=== PATIENT | male | born 1990 | race Caucasian/White ===

== ENCOUNTER 2021-09-26 11:34 | Emergency (ER) | payer OTHER ==
--- OUTSIDE RECORDS SUMMARY | 2021-09-26 11:37 | XMS REPORT | Continuity of Care Document ---
:[address] [facility] t Address [address] [place] [address] Care Team Providers Name Role Phone Pcp, Does Not Have A Primary Care Physician Willa BURRER HAND Attending Clinician WILLA Attending Clinician Unavailable Doctor Unassigned, Name Attending Clinician Unavailable Lab, Fam Pob I Attending Clinician Unavailable Anene BURRER HAND Attending Clinician Priscila BURRER HAND, F Attending Clinician PRISCILA F Attending Clinician Unavailable Payers Payer Name Policy Type Policy Number Effective Date Expiration Date S ource Problems Condition Condition Condition Status Onset Resolution Last Treating Co mments Source Name Details Category Date Date Treatment Clinician Date Appendicit Appendicit Disease Active U nivers is, acute is, acute 02-01 ity of 00:00: [address] Allergies, Adverse Reactions, Alerts Allergy Allergy Status Severity Reaction(s) Onset Inactive Treating Comm ents Source Name Type Date Date Clinician NO KNOWN Drug Active Univers ALLERGIE Class ity of [facility] Social History Social Habit Start Date Stop Date Quantity Comments Source Exposure to Not sure [facility] SARS-CoV-2 (event) Medica l Branch Tobacco use and 2016-02-02 2016-02-02 Never used [facility] exposure 00:00:00 00:00:00 Medical Branch Sex Ass[birth year] [facility] 00:00:00 00:00:00 Medical Branch Smoking Status Start Date Stop Date Source Never smoker [facility] Medications Ordered Filled Start Stop Current Ordering Indication Dosage Frequency Signature Comments Components Source Medication Medication Date Date Medication? Clinician (SIG) Name Name indio Yes [id number] 5mL Take 5 mL Univers mine-pseudo 2-22 by mouth 4 it y of ephed[place]-D 00:00[place] (BROMFED 00 times Medical DM) 2-30-10 daily as Bran ch mg/5 mL needed for syrup Congestion /Allergies or Cough. fluticasone Yes [id number] 2{spray Use 2 Univers propionate 2-22 } Sprays in ity of 50 00:00: each [place] mcg/actuati 00 nostril Medic al on nasal daily. Branch spray fexofenadin Yes [id number] 1{tbl} Take 1 Univers e-pseudoeph 2-22 tablet by ity of edrine 00:00: mouth 2 [place] (POP-D) 00 (two) Medical 60-120 mg times Branch per tablet daily. acetaminoph No 650mg 650 mg, U nivers en -09-06 Oral, ity of (TYLENOL) 01:45: 00:45 ONCE, 1 [place] tablet 650 00 :00 dose, Fri Medi neema mg 09/06/19 at Branch 2044, ARIANA No known No Univers medications 8-09 ity of 22:19: [place] 24 [facility] No known No [facility] No known No [facility] No known No [facility] No known No Univers medications [facility] Vital Signs Vital Name Observation Time Observation Value Comments Source Body temperature 2019-09-07 01:45:[address] [facility] [place] [place] [facility] Systolic blood 2019-09-07 00:39:00 152 mm[Hg] Univer sity [facility] [place] Diastolic blood 2019-09-07 00:39:00 78 mm[Hg[facility] Heart rate 2019-09-07 00:39:00 82 /min Universi ty [facility] Respiratory rate 2019-09-07 00:39:00 12 /min [facility] Body height 2019-09-07 00:39:00 177.8 cm [facility] Body weight 2019-09-07 00:39:00 77.111 kg [facility] BMI 2019-09-07 00:39:00 24.39 kg/m2 [facility] Oxygen saturation in 2019-09-07 00:39:00 100 /min [facility] blood by [facility] Pulse oximetry Branch Procedures Procedure Date / Time Performed Performing Clinician Sour e CONSENT/REFUSAL FOR 2021-08-17 21:58:17 Doctor Unassigned, No [facility] Name Medical [place] TREATMENT ASSIGNMENT OF BENEFITS 2021-08-17 21:58:04 Doctor Unassigned, No [facility] ADC,CLC OR LCC ONLY - 2019-09-07 01:03:00 [facility] DIRECT Medical [place] ANTIGEN CONSENT/REFUSAL FOR 2019-09-07 00:29:21 Doctor Unassigned, No [facility] AND Name Medical Branch TREATMENT NOTICE OF PRIVACY 2019-09-07 00:27:37 Doctor Unassigned, No [facility] PRACTICES [facility] Medical [place] Encounters Start End Encounter Admission Attending Care Care Encounter Source Date/Time Date/Time Type Type Clinicians Facility Department ID 2021-09-15 2021-09-15 Refill Willa [facility] [id number] Univers 00:00:00 00:00:00 Josy HEALTH [id number] i ty of [place] [id number] [place] CHERRY?BLEA [phone] Wy dical [place] [id number] Branch MEDICAL OFFICE BUILDING 2021-08-17 2021-08-17 Outpatient R WILLA [facility] [id number] Univers 16:00:00 16:27:30 JOSY chris f [facility] [place] 2021-08-17 2021-08-17 Orders Doctor OLIVARES [id number] Univers 00:00:00 00:00:00 Only Unassigned, MANDO [id number] ity of [place] [facility] [id number] [place] [phone] [facility] 009 [place] 2020-07-07 2020-07-07 Laboratory Lab, [facility] Pob I [facility] [id number]. [id number] Univers 09:28:35 09:48:35 Only Anehumza, Deb Health [id number] ity of [place] [id number] [place] Professio [phone] [address] Office Building One 2020-04-28 2020-04-28 Laboratory Lab, [facility] Fam Pob I [facility] [id number]. [id number] Univers 15:15:23 15:35:23 Only Anene, Deb Health [id number] ity of [place] [id number] [place] Professio [phone] [address] Office [facility] 2020-04-28 2020-04-28 Letter Doctor ELISE [id number] Univers 00:00:00 00:00:00 (Out) Unassigned, MANDO [id number] ity of [place] [facility] [id number] [place] [phone] [facility] 044 [place] 2019-09-06 2019-09-06 Emergency [facility] [id number] Univers 19:41:57 21:18:00 Laina Arnold [place] [id number] ity of [place] [id number] [place] [phone] [facility] 084 [place] 2019-09-06 2019-09-06 Emergency X [facility] ERT [id number] Univers 19:41:57 19:41:57 LAINA marie [facility] Results Test Description Test Time Test Comments Results Result Comments Source ADC,CLC OR LCC ONLY - INFLUENZA A & B DIRECT ANTIGEN 2019-08 01:46:00 Test Item Value Reference Range Interpretation Comme nts Influenza A (test code = 21676-8) Negative Negative Influenza B (test code = 98535-7) Negative Negative Lab Interpretation (test code = 76480-6) [facility]
[2021-09-26] MEDS ORDERED: KETOROLAC 30 MG/ML INJ ONE (12:01)
[2021-09-26 12:07] LABS: Urine Blood Negative (Negative); Urine Glucose Negative (Negative); Urine Protein Negative (Negative); Urine Specific Gravity 1.025 (1.005-1.030)
--- NOTE | 2021-09-26 12:15 | ER ---
Nurse's Notes [facility] Name: David Ziegler Age: 31 yrs Sex: Male : 1990 Arrival Date: 09/26/2021 Time: 11:36 Bed 14 Private MD: Diagnosis: Low back pain Presentation: 09/26 11:40 Chief complaint: Patient states: Low back pain sine this morning, denies trauma, denies jl7 urinary symptoms. Coronavirus screen: At this time, the client does not indicate any symptoms associated with coronavirus-19. Ebola Screen: No symptoms or risks identified at this time. Initial Sepsis Screen: Does the patient meet any 2 criteria? No. Patient's initial sepsis screen is negative. Does the patient have a suspected source of infection? No. Patient's initial sepsis screen is negative. Risk Assessment: Do you want to hurt yourself or someone else? Patient reports no desire to harm self or others. Onset of symptoms was September 26, 2021. 11:40 Method Of Arrival: [facility] 11:40 Acuity: SABRINA 4 jl7 Triage Assessment: 11:41 General: Appears in no apparent distress. uncomfortable, Behavior is calm, cooperative, jl7 appropriate for age. Pain: Complains of pain in low back area Pain does not radiate. Pain currently is 8 out of 10 on a pain scale. Neuro: Level of Consciousness is awake, alert, obeys commands, Oriented to person, place, time, situation. Cardiovascular: Patient's skin is warm and dry. Respiratory: Airway is patent Respiratory effort is even, unlabored, Respiratory pattern is regular, symmetrical. : Denies burning with urination, pain. Derm: Skin is pink, warm \T\ dry. Historical: - Allergies: 11:41 No Known Allergies; jl7 - Home Meds: 11:41 None [Active]; jl7 - PMHx: 11:41 None; jl7 - PSHx: 11:41 None; jl7 - Immunization history:: Client reports having NOT received the Covid vaccine. - Social history:: Smoking status: Patient denies any tobacco usage or history of. Screenin:31 Abuse screen: Denies threats or abuse. Nutritional screening: No deficits noted. ap3 Tuberculosis screening: No symptoms or risk factors identified. Fall Risk None identified. Vital Signs: 11:40 BP 133 / 90; Pulse 71; Resp 17; Temp 98.5; Pulse Ox 97% on R/A; Weight 79.38 kg; Height jl7 5 ft. 10 in. (177.80 cm); Pain 8/10; 11:48 BP 125 / 84; Pulse 65; Resp 18; Temp 98.0(O); Pulse Ox 98% on R/A; mb7 11:40 Body Mass Index 25.11 (79.38 kg, 177.80 cm) jl7 ED Course: 11:36 Patient arrived in ED. as 11:40 Roslyn Grayson FNP-C [facility]. kb 11:40 Deng Mandel MD is Attending Physician. kb 11:41 Triage completed. jl7 11:41 Arm band placed on right wrist. jl7 11:44 Britney Hernandez, RN is Primary Nurse. ap3 11:49 Bed in low position. Call light in reach. Side rails up X 1. Door closed. Noise mb7 minimized. 12:31 No provider procedures requiring assistance completed. Patient did not have IV access ap3 during this emergency room visit. Administered Medications: 12:17 Drug: Ketorolac 30 mg Route: IM; Site: right gluteus; ap3 12:31 Follow up: Response: No adverse reaction ap3 Outcome: 12:15 Discharge ordered by . kb 12:38 Discharged to home ambulatory. ap3 12:38 Condition: good 12:38 Discharge instructions given to patient, Instructed on discharge instructions, follow up and referral plans. medication usage, Demonstrated understanding of instructions, follow-up care, medications, Prescriptions given X 2. 12:39 Patient left the ED. ap3 Signatures: Roslyn Grayson FNP-C FNP-Ckb Martinez, Amelia as Leal, Jahala RN RN 7 Britney Hernandez RN RN [id number] Molly Smith 7
--- NOTE | 2021-09-26 12:15 | EDPHYS ---
Physician Documentation [facility] Name: David Ziegler Age: 31 yrs Sex: Male : 1990 Arrival Date: 09/26/2021 Time: 11:36 Bed 14 Private MD: ED Physician Deng Mandel HPI: 09/26 12:13 This 31 yrs old Male presents to ER via Ambulatory with complaints of Low Back Pain. kb 12:13 The patient presents with pain that is acute, with no known mechanism of injury. The kb symptoms are located in the low back. The pain does not radiate. The problem was sustained from unknown cause. Onset: The symptoms/episode began/occurred this morning. Modifying factors: The patient symptoms are alleviated by nothing, the patient symptoms are aggravated by any movement. Associated signs and symptoms: The patient has no apparent associated signs or symptoms. Severity of symptoms: At their worst the symptoms were moderate, in the emergency department the symptoms are unchanged. The patient has not experienced similar symptoms in the past. The patient has not recently seen a physician. Pt reports low back pain that started this morning. States "I thought I just slept wrong. I went to the park and ran around then it started hurting worse.". Historical: - Allergies: 11:41 No Known Allergies; jl7 - Home Meds: 11:41 None [Active]; jl7 - PMHx: 11:41 None; jl7 - PSHx: 11:41 None; jl7 - Immunization history:: Client reports having NOT received the Covid vaccine. - Social history:: Smoking status: Patient denies any tobacco usage or history of. ROS: 12:11 Constitutional: Negative for fever, chills, and weight loss. kb 12:11 Back: Positive for pain at rest, pain with movement, of the low back area. 12:11 All other systems are negative. Exam: 12:11 Constitutional: This is a well developed, well nourished patient who is awake, alert, kb and in no acute distress. Head/Face: Normocephalic, atraumatic. ENT: Moist Mucous membranes Respiratory: Respirations even and unlabored. No increased work of breathing. Talking in full sentences Skin: Warm, dry with normal turgor. Normal color. MS/ Extremity: Pulses equal, no cyanosis. Neurovascular intact. Full, normal range of motion. Neuro: Awake and alert, GCS 15, oriented to person, place, time, and situation. Moves all extremities. Normal gait. Psych: Awake, alert, with orientation to person, place and time. Behavior, mood, and affect are within normal limits. 12:11 Back: pain, that is moderate, of the low back area, ROM is painful. Vital Signs: 11:40 BP 133 / 90; Pulse 71; Resp 17; Temp 98.5; Pulse Ox 97% on R/A; Weight 79.38 kg; Height jl7 5 ft. 10 in. (177.80 cm); Pain 8/10; 11:48 BP 125 / 84; Pulse 65; Resp 18; Temp 98.0(O); Pulse Ox 98% on R/A; mb7 11:40 Body Mass Index 25.11 (79.38 kg, 177.80 cm) jl7 MDM: 11:42 Patient medically screened. kb 12:09 Data reviewed: vital signs, nurses notes. Data interpreted: Pulse oximetry: on room air kb is 98 %. Interpretation: normal. 12:11 Counseling: I had a detailed discussion with the patient and/or guardian regarding: the kb historical points, exam findings, and any diagnostic results supporting the discharge/admit diagnosis, lab results, the need for outpatient follow up, a family practitioner, to return to the emergency department if symptoms worsen or persist or if there are any questions or concerns that arise at home. 09/26 12:07 Order name: Urine Dipstick-Ancillary; Complete Time: 12:09 EDWV 09/26 11:42 Order name: Urine Dipstick-Ancillary (obtain specimen); Complete Time: 12:07 kb Administered Medications: 12:17 Drug: Ketorolac 30 mg Route: IM; Site: right gluteus; ap3 12:31 Follow up: Response: No adverse reaction ap3 Disposition: 14:51 Co-signature as Attending Physician, Deng Mandel MD. rn Disposition Summary: 09/26/21 12:15 Discharge Ordered Location: Home kb Condition: Stable kb Diagnosis - Low back pain kb Followup: kb - With: Emergency Department - When: As needed - Reason: Worsening of condition Followup: kb - With: Private Physician - When: 2 - 3 days - Reason: Recheck today's complaints, Continuance of care, Re-evaluation by your physician Discharge Instructions: - Discharge Summary Sheet kb - Acute Back Pain, Adult kb Forms: - Medication Reconciliation Form kb - Thank You Letter kb - Antibiotic Education kb - Prescription Opioid Use kb Prescriptions: - Cyclobenzaprine 10 mg Oral Tablet - take 1 tablet by ORAL route every 8 hours As needed; 15 tablet; Refills: 0, kb Product Selection Permitted - Diclofenac Sodium 75 mg Oral tablet,delayed release (DR/EC) - take 1 tablet by ORAL route 2 times per day As needed; 30 tablet; Refills: 0, kb Product Selection Permitted Signatures: Roslyn Grayson, STUMP BLOWER-C STUMP BLOWER-Ckb Deng Mandel MD MD rn Katelyn Benítez RN RN jl7 Britney Hernandez RN RN ap3
[2021-09-26 12:44] VITALS: BP 125/84; TEMP 98; O2SAT 98
== END 2021-09-26 12:39 | disposition home or self-care (01) ==
LOC: ER 11:34
DX: M54.50 Low back pain, unspecified (principal)
CPT/HCPCS: 81003; 96372; 99283